=== PATIENT | male | born 1995 | race Caucasian/White ===

== ENCOUNTER 2023-07-01 06:14 | Emergency (ER) | payer BC, OTHER ==
[~2023-07-01] VITALS: Ht 170.2 cm; Wt 75.0 kg
[2023-07-01 06:31] VITALS: O2SAT 98
[2023-07-01] MEDS ORDERED: TOPUD PO (07:07)
[2023-07-01] MEDS ORDERED: AMOX1TAB16 PO (07:07)
[2023-07-01 07:26] VITALS: BP 131/84; PULSE 93; RESP 16; TEMP 98.7
== END 2023-07-01 07:31 | disposition home or self-care (01) ==
LOC: ER 06:14
DX: R05.9 Cough, unspecified (principal); H66.92 Otitis media, unspecified, left ear; F12.10 Cannabis abuse, uncomplicated
CPT/HCPCS: 99283